=== PATIENT | female | born 1950 | race Hispanic/Latino ===

== ENCOUNTER → 2018-08-18 | Outpatient (CLI) | payer MEDICARE | END | disposition home or self-care (01) | LOC: RAH 08:37 | PROVIDERS: ATTEND Internal Medicine | DX: K76.0 Fatty (change of) liver, not elsewhere classified (principal); K80.20 Calculus of gallbladder without cholecystitis without obstruction; I70.0 Atherosclerosis of aorta | CPT/HCPCS: 76700 ==

== ENCOUNTER → 2018-08-22 | Outpatient (CLI) | payer MEDICARE | END | disposition home or self-care (01) | LOC: RAH 08:08 | PROVIDERS: ATTEND Obstetrics & Gynecology | DX: Z12.31 Encounter for screening mammogram for malignant neoplasm of breast (principal) | CPT/HCPCS: 77067 ==

== ENCOUNTER → 2018-09-02 | Outpatient (CLI) | payer MEDICARE | END | disposition home or self-care (01) | LOC: RAH 14:57 | PROVIDERS: ATTEND Obstetrics & Gynecology | DX: N60.02 Solitary cyst of left breast (principal) | CPT/HCPCS: 76641; 77065 ==

== ENCOUNTER → 2018-09-22 | Outpatient (CLI) | payer MEDICARE ==
[2018-09-22 11:14] LABS: INR 0.96 (0.85-1.15); PARTIAL THROMBOPLASTIN TIME 26.8 SEC (26.3-35.5); PROTHROMBIN TIME 10.1 SEC (9.6-11.6)
--- NOTE | 2018-09-22 12:30 | NUR ---
U/S GD RT BREAST BX PROCEDURE PERFORMED BY DR Mehdi ORTIZ. PUNCTURE SITE RT BREAST AT 3 O'CLOCK AND PATIENT TOLERATED PROCEDURE WELL. SPECIMEN X 4 COLLECTED AND SENT TO LAB. TISSUE MARKER DEPLOYED TO BX SITE. END OF PROCEDURE AT 1155. BIOPSY NEEDLE REMOVED AND DRESSING APPLIED. NO BLEEDING NOTED. DISCHARGE INSTRUCTIONS GIVEN TO PATIENT AND VERBALIZED UNDERSTANDING. DISCHARGED VIA AMBULATION AT 1230. AAO X3 WITH NO C/O PAIN.
== END ==
LOC: RAH 10:31
PROVIDERS: ATTEND Internal Medicine
DX: D24.1 Benign neoplasm of right breast (principal); Z88.0 Allergy status to penicillin; Z88.8 Allergy status to other drugs, medicaments and biological substances
CPT/HCPCS: 19083; 36415; 85610; 85730; 88305; A4215 ×3; 76942